=== PATIENT | female | born 1970 | race African-American/Black ===

== ENCOUNTER 2018-01-19 14:33 | Outpatient (CLI) | payer BC ==
--- NOTE | 2018-01-19 17:05 | MRI ---
MRI LEFT SHOULDER PERFORMED WITHOUT CONTRAST ENHANCEMENT: HISTORY: Left shoulder pain, more anterior. Decreased range of motion. FINDINGS: There are marrow edema changes involving the distal end of the clavicle. There is some subchondral b flora change, which could indicate a small associated insufficiency fracture. The acromion itself is s omewhat laterally downsloping. There is a moderate grade undersurface tear of the supraspinatus tendon. Some of the articular-sided fibers were retracted by as much as 1.5 cm. I would estimate the thickness of this portion of the t ear at 40%. It does appear to have undersurface extension into the infraspinatus. The subscapularis muscle and tendon are intact, and the biceps tendon is normal in position within th e bicipital groove. I do not appreciate any definite labral abnormalities. The inferior glenohumeral ligament is intact. IMPRESSION: 1. Fairly pronounced marrow edema changes of the distal end of the clavicle. Could be on the basis of a small insufficiency fracture. There are some subchondral bony changes seen. 2. Mid grade undersurface tear of the supraspinatus tendon, extending minimally into the infraspinat us. No muscle atrophy is seen. POS: [facility]
== END 2018-01-19 14:34 | disposition home or self-care (01) ==
LOC: BICMRI 14:33
PROVIDERS: ATTEND Family Medicine
DX: M25.512 Pain in left shoulder (principal); R29.898 Other symptoms and signs involving the musculoskeletal system; M75.102 Unspecified rotator cuff tear or rupture of left shoulder, not specified as traumatic

== ENCOUNTER 2018-04-10 06:19 | Day surgery (SDC) | payer BC ==
[2018-04-09 11:31] VITALS: BMI 43.2
[2018-04-10] MEDS ORDERED: Fentanyl 100 MCG/2 ML VIAL ONE ×2 (06:34→07:32)
[2018-04-10] MEDS ORDERED: Midazolam HCl 2 mg/2 ml Vial ONE (06:34)
[2018-04-10 07:23] LABS: #Basophils 0.1 thou/uL (0.0-0.2); #Eosinphils 0.4 thou/uL (0.0-0.7); #Lymphocytes 2.2 thou/uL (1.20-3.40); #Monocytes 0.5 thou/uL (0.11-0.59); #Neutrophils 1.8 thou/uL (1.40-6.50); %Basophils 1.8 % (0.0-1.0); %Eosinophils 7.4 % (0.0-10.0); %Lymphocytes 44.2 % (21.0-51.0); %Monocytes 10.9 % (0.0-10.0); %Neutrophils 35.7 % (42.0-75.0); Mean Corpuscular HGB CONC 32.5 g/dL (32.0-36.0); Mean Corpuscular Hemoglobin 30.5 pg (27.0-31.0); Mean Corpuscular Volume 93.9 fL (78.0-98.0); Mean Platelet Volume 8.1 fL (7.4-10.4); Platelet Count 280 thou/uL (130-400); RBC Distribution Width 12.6 % (11.5-14.5); Red Blood Cell (RBC) Count 4.58 mill/uL (4.20-5.40); White Blood Cell (WBC) Count 4.9 thou/uL (4.8-10.8)
[2018-04-10] MEDS ORDERED: Lidocaine 1% (PF) 30 ML VIAL ONE (07:33)
[2018-04-10] MEDS ORDERED: PROPOFOL 20 ML ONE (07:33)
[2018-04-10] MEDS ORDERED: HYDROcodone/Acetaminophen 10/325 mg Tablet PO PRN ×2 (07:59)
[2018-04-10] MEDS ORDERED: HYDROcodone/Acetaminophen 5/325 mg Tablet PO PRN ×2 (07:59)
[2018-04-10] MEDS ORDERED: Ropivacaine 0.2% 550 ML 550 ML NERVE BLCK SCH (07:59)
[2018-04-10] MEDS ORDERED: Fentanyl 100 MCG/2 ML VIAL IV PRN (08:00)
--- NOTE | 2018-04-10 10:21 | OP ---
DATE OF PROCEDURE: 04/10/2018 PREOPERATIVE DIAGNOSIS: Left shoulder distal clavicle osteolysis. POSTOPERATIVE DIAGNOSIS: Left shoulder distal clavicle osteolysis. PROCEDURE PERFORMED: Left open Mainor procedure. MANAGER DATA CENTER: Jl Payan PA-C. BLOOD LOSS: Minimal. COMPLICATIONS: None. ANESTHESIA: She had general anesthetic as well as preoperative block. IMPLANTS: There were no implants. DISPOSITION: She did go to recovery room in stable condition. INDICATIONS: This is a 47-year-old female, who had long-term AC joint pain, was found on MRI to have distal clavicle osteolysis. At this time, she has opted for surgery. DESCRIPTION OF PROCEDURE: After verbal consent forms were explained and signed, she was taken back to the operative room and at this time, she was given general anesthetic. Once the local anesthesia was appropriate, she was rolled into the right lateral decubitus position with all bony problems well padded. Axillary roll was placed underneath the right axilla and a dang bag was inflated to hold her in this position. The arm was then suspended to 15 pounds in standard surgical fashion. We then prepped and draped the left shoulder and upper extremity in standard surgical fashion. We then made an oblique incision over the AC joint down with a 10 blade down through skin. Bovie was used to coagulate any brisk venous bleeding. Periosteal sleeve was then taken anterior and posterior to expose the distal centimeter of the clavicle. Rongeur was used to clean out the AC joint, and at this time, a saw was used to remove 1 cm distal clavicle. Edges were smoothed off with a rasp and a small amount of bone wax was placed onto the bleeding cancellous bone. At this time, the wound was thoroughly irrigated and dried. We then used multiple Vicryl to close our periosteal sleeve, 2-0 Vicryl and Prolene sutures to close skin. Bulky sterile dressing was applied. The patient was then awakened, taken to the recovery room in stable condition. All counts were correct at the end of the case and she did receive preoperative IV antibiotics. Job ID: [id number]
[2018-04-10] MEDS ORDERED: Ketorolac Tromethamine 30 MG/ML VIAL IVP SCH (12:00)
[2018-04-10] MEDS ORDERED: Ropivacaine 0.5% HCl/PF (150 MG/30 ML VIAL) ONE (14:58)
[2018-04-10] MEDS ORDERED: Ropivacaine 0.2% HCl/PF (40 MG/20 ML VIAL) ONE (14:58)
[2018-04-10] MEDS ORDERED: Lidocaine 1% PF 5 ML VIAL ONE (15:10)
[2018-04-10] MEDS ORDERED: Rocuronium Bromide 10 MG/ML (10ML VIAL) ONE (15:10)
[2018-04-10] MEDS ORDERED: PROPOFOL 200 MG/20 ML VIAL ONE (15:10)
[2018-04-10] MEDS ORDERED: Esmolol 100 MG/10 ML VIAL ONE (15:10)
[2018-04-10] MEDS ORDERED: Dexamethasone 20 MG/5 ML VIAL ONE (15:10)
[2018-04-10] MEDS ORDERED: Succinylcholine Chloride 20 MG/ML 10 ml SYRINGE FS ONE (15:10)
[2018-04-10] MEDS ORDERED: Ondansetron PF 4 MG/2 ML Vial ONE (15:10)
== END 2018-04-10 11:01 | disposition home or self-care (01) ==
LOC: SDC 06:19
PROVIDERS: ATTEND Orthopaedic Surgery
PROC: 0PBB0ZZ Excision of Left Clavicle, Open Approach (ICD-10-PCS; principal; 2018-04-10)
PROC: 3E0T3BZ Introduction of Anesthetic Agent into Peripheral Nerves and Plexi, Percutaneous Approach (ICD-10-PCS; principal; 2018-04-10)
DX: M89.512 Osteolysis, left shoulder (principal); G89.18 Other acute postprocedural pain; E55.9 Vitamin D deficiency, unspecified; E89.0 Postprocedural hypothyroidism
CPT/HCPCS: 85025; 93005; 93010; A4306; J1100; J2001; J2250; J2405; J2704; J2795; J3010

== ENCOUNTER 2018-12-25 11:03 | Outpatient (CLI) | payer BC ==
--- NOTE | 2018-12-25 13:39 | MMO ---
Bilateral MAMMO Bilat Screen [facility]. CLINICAL HISTORY: Patient is 48 years old and is seen for screening. The patient has no family history of breast cancer. The patient has no personal history of cancer. VIEWS: The views performed were: bilateral craniocaudal with tomosynthesis and bilateral mediolateral oblique with tomosynthesis. This study has been interpreted with the assistance of computer-aided detection. MAMMOGRAM FINDINGS: There are scattered fibroglandular densities. There are no suspicious masses, suspicious calcifications, or new areas of architectural distortion. IMPRESSION: THERE IS NO MAMMOGRAPHIC EVIDENCE OF MALIGNANCY. A ROUTINE FOLLOW-UP MAMMOGRAM IN 1 YEAR IS RECOMMENDED. THE RESULTS OF THIS EXAM WERE SENT TO THE PATIENT. ACR BI-RADS Category 1 - Negative MAMMOGRAPHY NOTE: 1. A negative mammogram report should not delay a biopsy if a dominant of clinically suspicious mass is present. 2. Approximately 10% to 15% of breast cancers are not detected by mammography. 3. Adenosis and dense breasts may obscure an underlying neoplasm. Reported by: ERIKA LIM MD Electonically Signed: [id number]
== END 2018-12-25 11:04 | disposition home or self-care (01) ==
LOC: BICMAMMO 11:03
PROVIDERS: ATTEND Family Medicine
DX: Z12.31 Encounter for screening mammogram for malignant neoplasm of breast (principal)
CPT/HCPCS: 77063; 77067